=== PATIENT | male | born 1965 ===

== ENCOUNTER 2017-06-10 00:05 | Observation (INO) | payer MEDICARE, OTHER ==
[~2017-06-10] VITALS: Ht 182.9 cm; Wt 120.2 kg
[~2017-06-10 00:05] MED LIST: ZANTAC 7575 MG PO
--- OUTSIDE RECORDS SUMMARY | 2017-06-10 00:07 | XMS REPORT | Clinical Summary ---
Author Author [facility] Address Unknown Phone Unavailable Care Team Providers Care Director Investment [employer]ing Name Role Phone Asked, Given PCP Unavailable Allergies Active Allergy Reactions Severity Noted Date Comments No Known Drug Allergies 04/13/2015 Current Medications Prescription Sig. Disp. Refills Start End Date Status Date naproxen sodium (ALEVE) Take 1 tablet by mouth. 10/28/19 Active 220 MG tablet 15 multivitamin with Take 1 tablet by mouth. Active minerals tablet psyllium 1.7 g wafer Take 1 scoop BID Active mupirocin (BACTROBAN) 2 % APPLY TO AFFECTED AREA(S) 07/17/19 Active ointment TWO TIMES A DAY 16 psyllium (METAMUCIL) 3.4 Take 1 packet by mouth. Active gram packet esomeprazole (NexIUM) 40 Take 40 mg by mouth. Active MG capsule multivitamin (THERAGRAN) Take 1 tablet by mouth. Active tablet psyllium (METAMUCIL) 3.4 Take 1 packet by mouth. Active gram packet doxycycline (VIBRAMYCIN) Take 1 capsule (100 mg 60 capsule 2 09/11/19 Active 100 MG capsule total) by mouth 2 (two) 17 times a day for 30 days. amoxicillin-pot Take 875 mg by mouth. 10/08/19 Active clavulanate (AUGMENTIN) 17 875-125 mg per tablet ciprofloxacin (CIPRO) 500 Take 500 mg by mouth. 10/08/19 Active MG tablet 17 acetaminophen (TYLENOL) Take 325 mg by mouth. Active 325 MG tablet amoxicillin-pot Take 875 mg by mouth. 01/22/20 Active clavulanate (AUGMENTIN) 17 875-125 mg per tablet sodium chloride 0.9 % Inject 10 mL (1 syringe) 10/24/19 Active injection into each lumen of 17 central venous catheter daily as directed. ciprofloxacin (CIPRO) 500 Take 500 mg by mouth. 01/22/20 Active MG tablet 17 ranitidine (ZANTAC) 150 Take 150 mg by mouth. 03/07/20 Active MG capsule 17 esomeprazole (NexIUM Take by mouth. 07/31/19 Discontin Packet) 20 mg packet 17 ued HEParin, porcine, PF, INFUSE 2 ML (200 UNITS 11/29/19 07/31/19 Discontin (HEParin) 100 unit/mL TOATL) INTRAVENOUSLY 16 17 ued syringe DAILY FOR 60 DOSES. ranitidine (ZANTAC) 150 Take 150 mg by mouth. 07/31/19 Discontin MG capsule 17 ued vitamin E cream 1 application. 07/31/19 Discontin 17 ued minocycline Take 1 capsule (100 mg 28 capsule 0 07/31/19 08/20/19 Discontin (MINOCIN,DYNACIN) 100 MG total) by mouth 2 (two) 17 17 ued capsule times a day for 14 days. minocycline Take 1 capsule (100 mg 28 capsule 0 08/20/19 09/12/19 Discontin (MINOCIN,DYNACIN) 100 MG total) by mouth 2 (two) 17 17 ued capsule times a day for 14 days. minocycline Take 100 mg by mouth. 09/12/19 Discontin (MINOCIN,DYNACIN) 100 MG 17 ued capsule doxycycline (VIBRAMYCIN) Take 1 capsule (100 mg 60 capsule 2 09/11/19 09/11/19 Discontin 100 MG capsule total) by mouth 2 (two) 17 17 ued times a day for 30 days. 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 He does not appear to have a significant infection and therefore we will not plan to delay chemotherapy but would change this is a feel need for IV antibiotics. 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 We are coordinated with [facility] team regarding his potential eligibility for EBV CTLs. Last Assessment & Plan: Proceed with next dose of gemcitabine oxaliplatin. He is having a very good response and good toleration thus far Last Assessment & Plan: After short interval follow-up is had slight progression and therefore will need therapy. We have discussed his case with [facility] and they do have additional EBV positive lymphocytes to use therapeutically for him. They anticipate opening of a EBV-positive lymphocyte plus PD1 antibody clinical trial in the next 4-8 weeks. Therefore we will have him return to our center in 2 weeks to start bendamustine 90 milligrams per meter squared on days 1 and 2. 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 The patient is now status post 40 Gy of radiation to the right lower leg and is followed by Maira Sanchez and Charles at [facility] 1. February 2013, he developed a new lesion in the right calf. 03/02/2013, right lower extremity skin biopsy revealed NK-like T-cell lymphoma. 2. April 2013 PET-CT showed hypermetabolic right lower extremity subcutaneous nodules with a relatively high SUV value. Referred for radiation therapy to the leg. 3. April-May 2013 radiation to the right lower extremity with a total dose of 40 Gy in 20 fractions as well as R inguinal irradiation . His treatment course was complicated by wound formation and desquamation of the R lower extremity. 4. July 2013 PET showed improvement in R lower leg lesion but there were a couple of FDG avid tasneem sites within the groin and right external iliac vessels and right common iliac vessel that were concerning. 5. December 2013 PET scan showed decrease edema in the right lower extremity, little change to slight improvement in the foci of the skin. Pelvic and inguinal nodes were stable. 6. February 2014 PET showed right lower extremity edema and focal skin lesions in the right leg and right foot have slightly improved."There is stable cutaneous and subcutaneous thickening in the right foot with focal hypermetabolic activities SUV of 8.6 on image 924, mildly improved from previous measurement of 11 . There is also stable focal tracer uptake in the skin of the right leg on image 807 with SUV of 2.5, mildly improved from previous measurement of 3.6 However new hypermetabolic adenopathies are seen in the right groin with SUV of 6.6 on image 460 and SUV of 4.9 on image 489. New hypermetabolic subcentimeter lymph nodes are also seen in the right inguinal regions with SUV of 3.1 on image 49." Encounters Date Type Specialty Care Team Description 03/25/2017 [facility] Hematology and Oncology Mariluz Katz MD 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; Extranodal NK/T-cell lymphoma, nasal type 03/24/2017 [facility] Hematology and Oncology Martha Lang RN 03/20/2017 [facility] Hematology and Oncology Ann Bowers MD 02/26/2017 [facility] Hematology and Oncology Ann Bowers MD 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; Extranodal NK/T-cell lymphoma, nasal type 02/26/2017 [facility] Hematology and Oncology Ann Bowers MD Extranodal NK/T-cell lymphoma, nasal type; 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 02/19/2017 [facility] Hematology and Oncology Mariluz Katz MD 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; Extranodal NK/T-cell lymphoma, nasal type 02/18/2017 [facility] Hematology and Oncology Mariluz Katz MD 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; Extranodal NK/T-cell lymphoma, nasal type 02/12/2017 [facility] Hematology and Oncology Ann Bowers MD 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; Extranodal NK/T-cell lymphoma, nasal type 02/05/2017 [facility] Hematology [facility] Oncology Ann Bowers MD 02/04/2017 [facility] Hematology and Oncology Mariluz Katz MD 01/30/2017 [facility] Hematology and Oncology Ann Bowers MD 12/17/2016 [facility] Hematology and Oncology Mariluz Katz MD Research study patient Encounter Ann Bowers MD (Primary Dx); 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; Extranodal NK/T-cell lymphoma, nasal type 12/17/2016 [facility] Hematology and Oncology Martha Lang RN 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; Extranodal NK/T-cell lymphoma, nasal type 12/17/2016 [facility] Hematology and Oncology Ann Bowers MD 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; Extranodal NK/T-cell lymphoma, nasal type 12/12/2016 [facility] Hematology and Oncology Ann Bowers MD 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; Extranodal NK/T-cell lymphoma, nasal type 12/03/2016 [facility] Hematology and Oncology Ann Bowers MD 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; Extranodal NK/T-cell lymphoma, nasal type 10/21/2016 [facility] Hematology and Oncology Ann Bowers MD Canceled (Patient) Encounter 10/21/2016 [facility] Hematology and Oncology Martha Lang RN 10/14/2016 [facility] Hematology and Oncology Ann Bowers MD Research study patient Encounter (Primary Dx); 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; Extranodal NK/T-cell lymphoma, nasal type 10/14/2016 [facility] Hematology and Oncology Martha Lang RN 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; Extranodal NK/T-cell lymphoma, nasal type 10/14/2016 [facility] Hematology and Oncology Martha Lang RN 10/09/2016 [facility] Hematology and Oncology Martha Lang RN 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; Extranodal NK/T-cell lymphoma, nasal type 09/25/2016 [facility] Hematology and Oncology Martha Lang RN 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; Extranodal NK/T-cell lymphoma, nasal type 09/24/2016 [facility] Hematology and Oncology Ann Bowers MD Research study patient Encounter (Primary Dx); 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; Extranodal NK/T-cell lymphoma, nasal type 09/18/2016 [facility] Hematology and Oncology Martha Lang RN 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; Extranodal NK/T-cell lymphoma, nasal type 09/11/2016 [facility] Hematology and Oncology Ann Bowers MD Research study patient Encounter (Primary Dx); Extranodal NK/T-cell lymphoma, nasal type 09/11/2016 [facility] Hematology and Oncology Martha Lang RN 09/10/2016 [facility] Hematology and Oncology Ann Bowers MD Research study patient Encounter (Primary Dx); Extranodal NK/T-cell lymphoma, nasal type 09/10/2016 [facility] Hematology and Oncology Ann Bowers MD Extranodal NK/T-cell lymphoma, nasal type 09/09/2016 [facility] Pharmacy Flores Mccormack PharmD 09/04/2016 [facility] Only Hematology and Oncology Martha Lang RN Extranodal NK/T-cell lymphoma, nasal type 08/19/2016 [facility] Only Hematology and Oncology Crystal Francis [employer] 07/30/2016 [facility] Hematology and Oncology Ann Bowers MD Research study patient Encounter (Primary Dx); Extranodal NK/T-cell lymphoma, nasal type 07/16/2016 [facility] Hematology and Oncology Ann Bowers MD Extranodal NK/T-cell Encounter Geovanni Reyes MD lymphoma, nasal type 07/16/2016 [facility] Hematology [facility] Oncology Martha Lang RN 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 07/16/2016 [facility] Only Oncology Martha Lang RN 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 (Primary Dx) 07/03/2016 [facility] Hematology and Oncology Ann Bowers MD Extranodal NK/T-cell Encounter lymphoma, nasal type 07/02/2016 [facility] Hematology and Oncology Ann Bowers MD Research study patient Encounter (Primary Dx); Extranodal NK/T-cell lymphoma, nasal type 07/01/2016 [facility] Hematology and Oncology Martha Lang RN Extranodal NK/T-cell lymphoma, nasal type 06/25/2016 [facility] Hematology and Oncology Ann Bowers MD Extranodal NK/T-cell Encounter lymphoma, nasal type 06/19/2016 [facility] Hematology and Oncology Ann Bowers MD Extranodal NK/T-cell Encounter lymphoma, nasal type 06/18/2016 [facility] Hematology and Oncology Ann Bowers MD Research study patient Encounter (Primary Dx); Extranodal NK/T-cell lymphoma, nasal type 06/18/2016 [facility] Hematology and Oncology Justice López MD 06/18/2016 [facility] Hematology and Oncology Ann Bowers MD Extranodal NK/T-cell lymphoma, nasal type 06/11/2016 [facility] Hematology [facility] Oncology Ann Bowers MD 06/11/2016 [facility] Hematology [facility] Oncology Martha Lang RN Extranodal NK/T-cell lymphoma, nasal type after 06/09/2016 Immunizations Name Dates Previously Given Next Due Influenza Split 12/22/2012 MMR 1965 Family History Medical History Relation Name Comments Prostate cancer Father No Known Problems Mother Prostate cancer Paternal Uncle Relation Name Status Comments Father Mother Alive Paternal Uncle Social History Tobacco Use Types Packs/Day Years Used Date Never Assessed Alcohol Use Drinks/Week oz/Week Comments No Sex Assigned at Date Recorded Not on file Last Filed Vital Signs Vital Sign Reading Time Taken Blood Pressure 111/62 03/25/2017 11:59 AM [employer] Pulse 102 03/25/2017 11:59 AM [employer] SERV[employer] PROFESSIONAL Temperature 35.9 C (96.7 F) 03/25/2017 11:59 AM [employer] PROFESSIONAL Respiratory Rate 21 03/25/2017 11:59 AM FIN[employer]CIAL SERVICE PROFESSIONAL Oxygen Saturation 99% 03/25/2017 11:59 AM FIN[employer]CIAL SERVICE PROFESSIONAL Inhaled Oxygen - - Concentration Weight 121 kg (266 lb 15.6 oz) 02/26/2017 9:29 AM FIN[employer]CIAL SERVICE PROFESSIONAL Height 182.9 cm (6') 03/25/2017 11:59 AM FIN[employer]CIAL SERVICE PROFESSIONAL Body Mass Index 36.21 02/26/2017 9:29 AM FIN[employer]CIAL SERVICE PROFESSIONAL Plan of Treatment Health Maintenance Due Date Last Done Comments COLONOSCOPY 07/11/2015 INFLUENZA VACCINE 10/15/2016 12/22/2012 Results * Estimated GFR (03/25/2017 11:53 AM) Only the most recent of 10 results within the time period is included. Component Value Ref Range GFR Non Af Amer >90 mL/min/1.73 m2 GFR Af Amer >90 mL/min/1.73 m2 Comment: Chronic kidney disease: <60 mL/min/1.73m2 Kidney failure: <15 mL/min/1.73m2 The estimated GFR is calculated from the IDMS-traceable Modification of Diet in Renal Disease Equation. The accuracy of the calculation is poor when the creatinine is normal. Calculated values >90 mL/min/1.73m2 are not reported. This equation has not been validated in children (<18 years), women, the elderly (>70 years), or ethnic groups other than Caucasians and Americans. Specimen Performing Laboratory Plasma specimen [facility] DEPARTMENT OF PATHOLOGY AND GENOMIC MEDICINE [address] [place] [id number] * CBC with platelet and differential (03/25/2017 11:53 AM) Only the most recent of 11 results within the time period is included. Component Value Ref Range WBC 9.09 4.50 - 11.00 k/uL RBC 3.36 (L) 4.40 - 6.00 m/uL HGB 8.9 (L) 14.0 - 18.0 g/dL HCT 28.6 (L) 41.0 - 51.0 % MCV 85.1 82.0 - 100.0 fL MCH 26.5 (L) 27.0 - 34.0 pg MCHC 31.1 31.0 - 37.0 g/dL RDW - SD 55.8 (H) 37.0 - 55.0 fL MPV 9.5 8.8 - 13.2 fL Platelet count 306 150 - 400 k/uL Nucleated RBC 0.00 /100 WBC Neutrophils 79.0 (H) 39.0 - 69.0 % Lymphocytes 4.2 (L) 25.0 - 45.0 % Monocytes 15.1 (H) 0.0 - 10.0 % Eosinophils 0.1 0.0 - 5.0 % Basophils 0.4 0.0 - 1.0 % Immature granulocytes 1.2 (H)Comment: "Immature granulocytes" 0.0 - 1.0 % (promyelocytes, myelocytes, metamyelocytes) Specimen Performing Laboratory Blood [facility] DEPARTMENT OF PATHOLOGY AND GENOMIC MEDICINE [address] [place] [id number] * Bilirubin direct (03/25/2017 11:53 AM) Only the most recent of 3 results within the time period is included. Component Value Ref Range Bilirubin direct <0.2 0.0 - 0.3 mg/dL Specimen Performing Laboratory Plasma specimen [facility] DEPARTMENT OF PATHOLOGY AND GENOMIC MEDICINE [address] [place] [id number] * Comprehensive metabolic panel (03/25/2017 11:53 AM) Only the most recent of 10 results within the time period is included. Component Value Ref Range Sodium 137 135 - 148 mEq/L Potassium 4.0 3.5 - 5.0 mEq/L Chloride 97 (L) 98 - 112 mEq/L CO2 26 24 - 31 mEq/L Anion gap 14 7 - 15 mEq/L Comment: Starting from June , anion gap calculation no longer incorporates potassium. Please note the change. BUN 11 6 - 20 mg/dL Creatinine 0.5 (L) 0.7 - 1.2 mg/dL Glucose 95 65 - 99 mg/dL Calcium 8.5 8.3 - 10.2 mg/dL Protein 5.5 (L) 6.3 - 8.3 g/dL Comment: [place] 4.6-7.0 g/dL 1 week 4.4-7.6 g/dL 7 months-1year 5.1-7.3 g/dL 1-2 years 5.6-7.5 g/dL >3 years 6.0-8.0 g/dL 18-150 6.3-8.3 g/dL Albumin 1.9 (L) 3.5 - 5.0 g/dL A/G ratio 0.5 (L) 0.7 - 3.8 Alkaline phosphatase 86 40 - 129 U/L AST 30 10 - 50 U/L ALT 12 5 - 50 U/L Total bilirubin 0.3 0.0 - 1.2 mg/dL Specimen Performing Laboratory Plasma specimen [facility] DEPARTMENT OF PATHOLOGY AND GENOMIC MEDICINE [address] [place] [id number] * Manual differential (02/12/2017 9:18 AM) Component Value Ref Range Manual differential PERFORMED Neutrophils 75.0 (H) 39.0 - 69.0 % Lymphocytes 8.0 (L) 25.0 - 45.0 % Monocytes 17.0 (H) 0.0 - 10.0 % Eosinophils 0.0 0.0 - 5.0 % Basophils 0.0 0.0 - 1.0 % Metamyelocytes 0 % Promyelocytes 0 % Platelet slide review Messi adequate Anisocytosis Moderate Polychromasia Moderate Tear drop cells Occasional Spherocytes Occasional Ovalocytes Moderate Enlarged platelets Moderate (A) Giant platelets Occasional Specimen Performing Laboratory [facility] DEPARTMENT OF PATHOLOGY AND GENOMIC MEDICINE [address] [place] [id number] * Lipase level (10/14/2016 1:07 PM) Only the most recent of 7 results within the time period is included. Component Value Ref Range Lipase 20 13 - 60 U/L Specimen Performing Laboratory Plasma specimen [facility] DEPARTMENT OF PATHOLOGY AND GENOMIC MEDICINE [address] [place] [id number] * Aerobic culture (07/16/2016 10:59 AM) Only the most recent of 2 results within the time period is included. Component Value Ref Range Aerobic culture isolate Staphylococcus aureus Many (A) Comment: Specimen Information Specimen Source: Wound Specimen Site: Foot right lateral Aerobic culture isolate Enterococcus faecalis Many The performance characteristics of this assay on this isolate were validated by the Microbiology Laboratory at [facility]. This source has not been approved by the U.S. Food and Drug Administration. The results are not intended to be used as the sole means for clinical diagnosis or patient management. The Microbiology Laboratory is authorized under the clinical Laboratory Improvement Amendments of 1988 (CLIA-88) to perform high complexity testing. The performance characteristics of this assay on this isolate were validated by the Microbiology Laboratory at [facility]. This source has not been approved by the U.S. Food and Drug Administration. The results are not intended to be used as the sole means for clinical diagnosis or patient management. The Microbiology Laboratory is authorized under the clinical Laboratory Improvement Amendments of 1988 (CLIA-88) to perform high complexity testing. Enterococcus resistant to high levels of Gentamicin. Susceptibility results do not indicate synergy with Penicillins and Vancomycin. (A) Specimen Performing Laboratory Wound - Foot [facility] DEPARTMENT OF PATHOLOGY AND GENOMIC MEDICINE [address] [place] [id number] Organism Antibiotic Method Susceptibility Staphylococcus aureus Ampicillin JOELLE mcg/mL: Resistant Staphylococcus aureus Clindamycin JOELLE <=0.5 mcg/mL: Susceptible Staphylococcus aureus Erythromycin JOELLE >4 mcg/mL: Resistant Staphylococcus aureus Levofloxacin JOELLE >4 mcg/mL: Resistant Staphylococcus aureus Linezolid JOELLE 2 mcg/mL: Susceptible Staphylococcus aureus Minocycline JOELLE <=1 mcg/mL: Susceptible Staphylococcus aureus Oxacillin JOELLE 0.5 mcg/mL: Susceptible Staphylococcus aureus Penicillin G JOELLE >1 mcg/mL: Resistant Staphylococcus aureus Rifampin JOELLE <=0.5 mcg/mL: Susceptible Staphylococcus aureus Trimethoprim/Sulfamethoxa JOELLE <=0.5/9.5 mcg/mL: zole Susceptible Staphylococcus aureus Tetracycline JOELLE <=0.5 mcg/mL: Susceptible Staphylococcus aureus Vancomycin JOELLE 1 mcg/mL: Susceptible Enterococcus faecalis Ampicillin JOELLE 1 mcg/mL: Susceptible Enterococcus faecalis Erythromycin JOELLE >4 mcg/mL: Resistant Enterococcus faecalis Gentamicin-Syn JOELLE >500 mcg/mL: Resistant Enterococcus faecalis Linezolid JOELLE <=1 mcg/mL: Susceptible Enterococcus faecalis Minocycline JOELLE >8 mcg/mL: Resistant Enterococcus faecalis Vancomycin JOELLE 1 mcg/mL: Susceptible * Gram stain (07/16/2016 10:59 AM) Only the most recent of 2 results within the time period is included. Component Value Ref Range Gram stain isolate Few WBC's Occasional Gram positive cocci in clusters Comment: Specimen Information Specimen Source: Wound Specimen Site: Foot right lateral Specimen Performing Laboratory Wound [facility] DEPARTMENT OF PATHOLOGY AND GENOMIC MEDICINE [address] [place] [id number] * Anaerobic culture (07/16/2016 10:59 AM) Only the most recent of 2 results within the time period is included. Component Value Ref Range Anaerobic culture isolate No anaerobic organisms isolated. Comment: Specimen Information Specimen Source: Wound Specimen Site: Foot right lateral Specimen Performing Laboratory Wound [facility] DEPARTMENT OF PATHOLOGY AND GENOMIC MEDICINE [address] [place] [address] after 06/09/2016 Insurance Payer Benefit Subscriber ID Type Phone Address Plan / Group MEDICARE MEDICARE xxxxxxxxxxx Medicare [place], [place] PART A AND B MEDICAID MEDICAID xxxxxxxxx Medicaid
[2017-06-10] MEDS ORDERED: ASPIRIN 81 MG CHEW TAB PO ONE (00:15)
[2017-06-10] MEDS ORDERED: SODIUM CHLORIDE 0.9% 1000ML 1,000 ML IV ONE (00:45)
--- NOTE | 2017-06-10 01:41 | Diagnostic Imaging Report ---
ADDENDUM #1 Multiple wires/leads overlie the patient. Left sided PICC terminates at the cavoatrial junction. Signed by: Dr Monica Kaplan MD on 06/10/2017 2:08 AM ORIGINAL REPORT CHEST SINGLE (PORTABLE), 06/10/2017 12:14 AM Technique: CHEST SINGLE (PORTABLE) Comparison: None available. Clinical history: \S\AMS,LOW 02 SATS \S\[id number] \S\0035 \S\Y Findings: See Impression Impression: 1. Lines/Tubes: None 2. Normal cardiomediastinal silhouette for portable technique. 3. Moderate to large right pleural effusion with associated atelectasis or consolidation. 4. Patchy left pulmonary opacities which could be due to infection or aspiration. Signed by: Dr Monica Kaplan MD on 06/10/2017 1:37 AM
--- OUTSIDE RECORDS SUMMARY | 2017-06-10 01:52 | XMS REPORT | Clinical Summary ---
Author Author [facility] Address Unknown Phone Unavailable Care Team Providers Care Melter Loader Name Role Phone Asked, Given PCP Unavailable [...] cycle of chemotherapy. We are coordinated with [facility] team regarding his potential eligibility for EBV CTLs. Last Assessment & Plan: Proceed with next dose of gemcitabine oxaliplatin. He is having a very good response and good toleration thus far Last Assessment & Plan: After short interval follow-up is had slight progression and therefore will need therapy. We have discussed his case with [facility] and they do have additional EBV positive lymphocytes to use therapeutically for him. They anticipate opening of a EBV-positive lymphocyte plus PD1 antibody clinical trial in the next 4-8 weeks. Therefore we will have him return to our center in 2 weeks to start bendamustine 90 milligrams per meter squared on days 1 and 2. If the cell therapy at [facility] is not available in 4 weeks he [...] followed by Maira Sanchez and Charles at [facility] 1. 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; Extranodal NK/T-cell lymphoma, nasal type 02/26/2017 [facility] Hematology and Oncology Ann Bowers MD Extranodal NK/T-cell lymphoma, nasal type; 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 02/19/2017 [facility] Hematology and Oncology Mariluz Katz MD 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; Extranodal NK/T-cell lymphoma, nasal type 02/18/2017 [facility] Hematology and Oncology Mariluz Katz MD 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; Extranodal NK/T-cell lymphoma, nasal type 02/12/2017 [facility] Hematology and Oncology Ann Bowers MD 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; Extranodal NK/T-cell lymphoma, nasal type 02/05/2017 [facility] Hematology [facility] Oncology Ann Bowers MD 02/04/2017 [facility] Hematology and Oncology Mariluz Katz MD 01/30/2017 [facility] Hematology [facility] Oncology Ann Bowers MD 12/17/2016 [facility] Hematology and Oncology Mariluz Katz [...] neoplasm; Extranodal NK/T-cell lymphoma, nasal type 10/21/2016 [facility] Hematology and Oncology Ann Bowers MD Canceled (Patient) Encounter 10/21/2016 [facility] Hematology and Oncology Martha Lang RN 10/14/2016 [facility] Hematology and Oncology Ann Bowers [...] neoplasm; Extranodal NK/T-cell lymphoma, nasal type 09/24/2016 [facility] Hematology and Oncology Ann Bowers MD Research study patient Encounter (Primary Dx); 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; Extranodal NK/T-cell lymphoma, nasal type 09/18/2016 [facility] Hematology and Oncology Martha Lang RN 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; Extranodal NK/T-cell lymphoma, nasal type 09/11/2016 [facility] Hematology and Oncology Ann Bowers MD Research study patient Encounter (Primary Dx); Extranodal NK/T-cell lymphoma, nasal type 09/11/2016 [facility] Hematology and Oncology Martha Lang RN 09/10/2016 [facility] Hematology and Oncology Ann Bowers MD Research study patient Encounter (Primary Dx); Extranodal NK/T-cell lymphoma, nasal type 09/10/2016 [facility] Hematology and Oncology Ann Bowers MD Extranodal NK/T-cell lymphoma, nasal type 09/09/2016 [facility] Pharmacy Flores Mccormack PharmD 09/04/2016 [facility] Hematology and Oncology Martha Lang RN Extranodal NK/T-cell lymphoma, nasal type 08/19/2016 [facility] Hematology and Oncology Crystal Francis ARMAMENT MECHANIC 07/30/2016 [facility] Hematology and Oncology Ann Bowers MD Research study patient Encounter (Primary Dx); Extranodal NK/T-cell lymphoma, nasal type 07/16/2016 [facility] Hematology and Oncology Ann Bowers MD Extranodal NK/T-cell Encounter Geovanni Reyes MD lymphoma, nasal type 07/16/2016 [facility] Hematology and Oncology Martha Lang RN 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 07/16/2016 [facility] Oncology Martha Lang RN 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 (Primary Dx) 07/03/2016 [facility] Hematology and Oncology Ann Bowers MD Extranodal NK/T-cell Encounter lymphoma, nasal type 07/02/2016 [facility] Hematology and Oncology Ann Bowers MD Research study patient Encounter (Primary Dx); Extranodal NK/T-cell lymphoma, nasal type 07/01/2016 [facility] Hematology and Oncology Martha Lang RN Extranodal NK/T-cell lymphoma, nasal type 06/25/2016 [facility] Hematology and Oncology Ann Bowers MD Extranodal NK/T-cell Encounter lymphoma, nasal type 06/19/2016 [facility] Hematology and Oncology Ann Bowers MD Extranodal NK/T-cell Encounter lymphoma, nasal type 06/18/2016 [facility] Hematology and Oncology Ann Bowers [...] Taken Blood Pressure 111/62 03/25/2017 11:59 AM LANDSCAPE PAINTER Pulse 102 03/25/2017 11:59 AM LANDSCAPE PAINTER Temperature 35.9 C (96.7 F) 03/25/2017 11:59 AM LANDSCAPE PAINTER Respiratory Rate 21 03/25/2017 11:59 AM LANDSCAPE PAINTER Oxygen Saturation 99% 03/25/2017 11:59 AM LANDSCAPE PAINTER Inhaled Oxygen - - Concentration Weight 121 kg (266 lb 15.6 oz) 02/26/2017 9:29 AM LANDSCAPE PAINTER Height 182.9 cm (6') 03/25/2017 11:59 AM LANDSCAPE PAINTER Body Mass Index 36.21 02/26/2017 9:29 AM LANDSCAPE PAINTER Plan of Treatment Health Maintenance Due Date [...] and Americans. Specimen Performing Laboratory Plasma specimen [facility] DEPARTMENT OF PATHOLOGY AND GENOMIC MEDICINE [address] [place] [address] 90369 * CBC with platelet and differential (03/25/2017 [...] (promyelocytes, myelocytes, metamyelocytes) Specimen Performing Laboratory Blood [facility] DEPARTMENT OF PATHOLOGY AND GENOMIC MEDICINE [address] [place] [address] 50204 * Bilirubin direct (03/25/2017 11:53 AM) Only the most recent of 3 results within the time period is included. Component Value Ref Range Bilirubin direct <0.2 0.0 - 0.3 mg/dL Specimen Performing Laboratory Plasma specimen [facility] DEPARTMENT OF PATHOLOGY AND GENOMIC MEDICINE [address] [place] [address] 61061 * Comprehensive metabolic panel (03/25/2017 11:53 AM) [...] 5.5 (L) 6.3 - 8.3 g/dL Comment: [place] 4.6-7.0 g/dL 1 week 4.4-7.6 g/dL 7 [...] 1.2 mg/dL Specimen Performing Laboratory Plasma specimen [facility] DEPARTMENT OF PATHOLOGY AND GENOMIC MEDICINE [address] [place] [address] 15370 * Manual differential (02/12/2017 9:18 AM) Component [...] (A) Giant platelets Occasional Specimen Performing Laboratory [facility] DEPARTMENT OF PATHOLOGY AND GENOMIC MEDICINE [address] [place] [address] 72669 * Lipase level (10/14/2016 1:07 PM) Only the most recent of 7 results within the time period is included. Component Value Ref Range Lipase 20 13 - 60 U/L Specimen Performing Laboratory Plasma specimen [facility] DEPARTMENT OF PATHOLOGY AND GENOMIC MEDICINE [address] [place] [address] 77250 * Aerobic culture (07/16/2016 10:59 AM) Only [...] validated by the Microbiology Laboratory at [facility]. This source has not been approved by [...] validated by the Microbiology Laboratory at [facility]. This source has not been approved by [...] (A) Specimen Performing Laboratory Wound - Foot [facility] DEPARTMENT OF PATHOLOGY AND GENOMIC MEDICINE [address] [place] [address]139 Organism Antibiotic Method Susceptibility Staphylococcus aureus Ampicillin [...] Foot right lateral Specimen Performing Laboratory Wound [facility] DEPARTMENT OF PATHOLOGY AND GENOMIC MEDICINE [address] [place] [address] 29881 * Anaerobic culture (07/16/2016 10:59 AM) Only the most recent of 2 results within the time period is included. Component Value Ref Range Anaerobic culture isolate No anaerobic organisms isolated. Comment: Specimen Information Specimen Source: Wound Specimen Site: Foot right lateral Specimen Performing Laboratory Wound [facility] DEPARTMENT OF PATHOLOGY AND GENOMIC MEDICINE [address] [place] [address] after 06/09/2016 Insurance Payer Benefit Subscriber ID Type Phone Address Plan / Group MEDICARE MEDICARE xxxxxxxxxxx Medicare [place], [place] PART A AND B MEDICAID MEDICAID xxxxxxxxx Medicaid
--- OUTSIDE RECORDS SUMMARY | 2017-06-10 01:53 | XMS REPORT ---
Author Author [facility] Address Unknown Phone Unavailable Care Team Providers Care Distribution District Supervisor Name Role Phone EDY HUANG Unavailable Unavailable Problems This patient has no known problems. Allergies, Adverse Reactions, Alerts This patient has no known allergies or adverse reactions. Medications This patient has no known medications. Results Test Description Test Time Test Comments Text Results Atomic Results Result Comments CHEST SINGLE (PORTABLE) [place] [address] Patient Name: MILO JENKINS MR #: [id number] : 1965 Age/Sex: 51/M Req #: [id number] Adm Physician: Ordered by: EDY HUANG MD Report #: [id number] Location: ER Room/Bed: ___ Procedure: [id number] DX/CHEST SINGLE (PORTABLE) Exam Date: 06/10/17 Exam Time: 34 REPORT STATUS: Signed CHEST SINGLE (PORTABLE), 06/10/2017 12:14 AM Technique: CHEST SINGLE (PORTABLE) Comparison: None available. Clinical history: S AMS,LOW 02 SATS S [id number] S 0035 S Y Findings: See Impression Impression: 1. Lines/Tubes: None 2. Normal cardiomediastinal silhouette for portable technique. 3. Moderate to large right pleural effusion with associated atelectasis or consolidation. 4. Patchy left pulmonary opacities which could be due to infection or aspiration. Signed by: Dr Francesco Kaplan MD on 06/10/2017 1: 37 AM Dictated By: FRANCESCO KAPLAN MD 6 Transcribed By: JOSE on 06/10/17136 COPY TO: EDY HUANG MD
[2017-06-10] MEDS: ONDANSETRON HCL INJ 2 MG/ML VIAL IV PRN ×4 (01:55→11:30)
[2017-06-10] MEDS: HYDROMORPHONE 1MG/1ML INJ IV PRN ×3 (05:42→11:30)
[2017-06-10 18:44] VITALS: BP 0/0
--- OUTSIDE RECORDS SUMMARY | 2017-06-20 12:37 | XMS REPORT | Clinical Summary ---
Author Author [facility] Address Unknown Phone Unavailable Care Team Providers Care Health Assistant Name Role Phone Asked, Given PCP Unavailable [...] cycle of chemotherapy. We are coordinated with [facility] team regarding his potential eligibility for EBV CTLs. Last Assessment & Plan: Proceed with next dose of gemcitabine oxaliplatin. He is having a very good response and good toleration thus far Last Assessment & Plan: After short interval follow-up is had slight progression and therefore will need therapy. We have discussed his case with [facility] and they do have additional EBV positive lymphocytes to use therapeutically for him. They anticipate opening of a EBV-positive lymphocyte plus PD1 antibody clinical trial in the next 4-8 weeks. Therefore we will have him return to our center in 2 weeks to start bendamustine 90 milligrams per meter squared on days 1 and 2. If the cell therapy at [facility] is not available in 4 weeks he [...] followed by Maira Sanchez and Charles at [facility] 1. 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; Extranodal NK/T-cell lymphoma, nasal type 02/26/2017 [facility] Hematology and Oncology Ann Bowers MD Extranodal NK/T-cell lymphoma, nasal type; 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 02/19/2017 [facility] Hematology and Oncology Mariluz Katz MD 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; Extranodal NK/T-cell lymphoma, nasal type 02/18/2017 [facility] Hematology and Oncology Mariluz Katz MD 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; Extranodal NK/T-cell lymphoma, nasal type 02/12/2017 [facility] Hematology and Oncology Ann Bowers MD 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; Extranodal NK/T-cell lymphoma, nasal type 02/05/2017 [facility] Hematology [facility] Oncology Ann Bowers MD 02/04/2017 [facility] Hematology and Oncology Mariluz Katz MD 01/30/2017 [facility] Hematology and Oncology Ann Bowers MD 12/17/2016 [facility] Hematology and Oncology Mariluz Katz MD Research [...] 12/03/2016 [facility] Hematology and Oncology Ann oBwers MD 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; Extranodal NK/T-cell lymphoma, nasal type 10/21/2016 [facility] Hematology and Oncology Ann Bowers MD Canceled (Patient) Encounter 10/21/2016 [facility] Hematology and Oncology Martha Lang RN 10/14/2016 [facility] Hematology and Oncology Ann Bowers MD Research [...] neoplasm; Extranodal NK/T-cell lymphoma, nasal type 09/24/2016 [facility] Hematology and Oncology Ann Bowers MD Research study patient Encounter (Primary Dx); 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; Extranodal NK/T-cell lymphoma, nasal type 09/18/2016 [facility] Hematology and Oncology Martha Lang RN 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; Extranodal NK/T-cell lymphoma, nasal type 09/11/2016 [facility] Hematology and Oncology Ann Bowers MD Research study patient Encounter (Primary Dx); Extranodal NK/T-cell lymphoma, nasal type 09/11/2016 [facility] Hematology [facility] Oncology Martha Lang RN 09/10/2016 [facility] Hematology and Oncology Ann Bowers MD Research study patient Encounter (Primary Dx); Extranodal NK/T-cell lymphoma, nasal type 09/10/2016 [facility] Hematology [facility] Oncology Ann Bowers MD Extranodal NK/T-cell lymphoma, nasal type 09/09/2016 [facility] Pharm[facility] Flores Mccormack PharmD 09/04/2016 [facility] Hematology and Oncology Martha Lang RN Extranodal NK/T-cell lymphoma, nasal type 08/19/2016 [facility] Hematology and Oncology Crystal Francis STAMPING OPERATOR 07/30/2016 [facility] Hematology and Oncology Ann Bowers MD Research study patient Encounter (Primary Dx); Extranodal NK/T-cell lymphoma, nasal type 07/16/2016 [facility] Hematology and Oncology Ann Bowers MD Extranodal NK/T-cell Encounter Geovanni Reyes MD lymphoma, nasal type 07/16/2016 [facility] Hematology [facility] Oncology Martha Lang RN 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 07/16/2016 [facility] Oncology Martha Lang RN 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 (Primary Dx) 07/03/2016 [facility] Hematology and Oncology Ann Bowers MD Extranodal NK/T-cell Encounter lymphoma, nasal type 07/02/2016 [facility] Hematology and Oncology Ann Bowers MD Research study patient Encounter (Primary Dx); Extranodal NK/T-cell lymphoma, nasal type 07/01/2016 [facility] Hematology and Oncology Martha Lang RN Extranodal NK/T-cell lymphoma, nasal type 06/25/2016 [facility] Hematology and Oncology Ann Bowers MD Extranodal NK/T-cell Encounter lymphoma, nasal type 06/19/2016 [facility] Hematology and Oncology Ann Bowers MD Extranodal NK/T-cell Encounter lymphoma, nasal type after 06/19/2016 Immunizations Name Dates Previously Given Next Due [...] Taken Blood Pressure 111/62 03/25/2017 11:59 AM DANCE MASTER Pulse 102 03/25/2017 11:59 AM DANCE MASTER Temperature 35.9 C (96.7 F) 03/25/2017 11:59 AM DANCE MASTER Respiratory Rate 21 03/25/2017 11:59 AM DANCE MASTER Oxygen Saturation 99% 03/25/2017 11:59 AM DANCE MASTER Inhaled Oxygen - - Concentration Weight 121 kg (266 lb 15.6 oz) 02/26/2017 9:29 AM DANCE MASTER Height 182.9 cm (6') 03/25/2017 11:59 AM DANCE MASTER Body Mass Index 36.21 02/26/2017 9:29 AM DANCE MASTER Plan of Treatment Health Maintenance Due Date Last Done Comments COLONOSCOPY 07/11/2015 INFLUENZA VACCINE 10/15/2017 12/22/2012 Results * Estimated GFR (03/25/2017 11:53 AM) Only the most recent of 9 results within the time period is included. [...] and Americans. Specimen Performing Laboratory Plasma specimen [facility] DEPARTMENT OF PATHOLOGY AND [facility] MEDICINE [address] [place] [address]246 * CBC with platelet and differential (03/25/2017 [...] (promyelocytes, myelocytes, metamyelocytes) Specimen Performing Laboratory Blood [facility] DEPARTMENT OF PATHOLOGY AND [address] [address] * Bilirubin direct (03/25/2017 11:53 AM) Only the most recent of 3 results within the time period is included. Component Value Ref Range Bilirubin direct <0.2 0.0 - 0.3 mg/dL Specimen Performing Laboratory Plasma specimen [facility] DEPARTMENT OF PATHOLOGY AND [facility] MEDICINE [address] [place] [address] 89475 * Comprehensive metabolic panel (03/25/2017 11:53 AM) Only the most recent of 9 results within the time period is included. [...] 5.5 (L) 6.3 - 8.3 g/dL Comment: 4.6-7.0 g/dL 1 week 4.4-7.6 g/dL 7 [...] 1.2 mg/dL Specimen Performing Laboratory Plasma specimen [facility] DEPARTMENT OF PATHOLOGY AND GENOMIC MEDICINE [address] [place] [address]297 * Manual differential (02/12/2017 9:18 AM) Component [...] (A) Giant platelets Occasional Specimen Performing Laboratory [facility] DEPARTMENT OF PATHOLOGY AND GENOMIC MEDICINE [address] [place] [address] 80959 * Lipase level (10/14/2016 1:07 PM) Only the most recent of 6 results within the time period is included. Component Value Ref Range Lipase 20 13 - 60 U/L Specimen Performing Laboratory Plasma specimen [facility] DEPARTMENT OF PATHOLOGY AND GENOMIC MEDICINE [address] [place] [address] 53058 * Aerobic culture (07/16/2016 10:59 AM) Only [...] validated by the Microbiology Laboratory at [facility]. This source has not been approved by [...] validated by the Microbiology Laboratory at [facility]. This source has not been approved by [...] (A) Specimen Performing Laboratory Wound - Foot [facility] DEPARTMENT OF PATHOLOGY AND GENOMIC MEDICINE [address] [place] [address] Organism Antibiotic Method Susceptibility Staphylococcus aureus Ampicillin [...] Foot right lateral Specimen Performing Laboratory Wound [facility] DEPARTMENT OF PATHOLOGY AND GENOMIC MEDICINE [address] [place] [address]59 * Anaerobic culture (07/16/2016 10:59 AM) Only the most recent of 2 results within the time period is included. Component Value Ref Range Anaerobic culture isolate No anaerobic organisms isolated. Comment: Specimen Information Specimen Source: Wound Specimen Site: Foot right lateral Specimen Performing Laboratory Wound [facility] DEPARTMENT OF PATHOLOGY AND GENOMIC MEDICINE [address] [place] [address] after 06/19/2016 Insurance Payer Benefit Subscriber ID Type Phone Address Plan / Group MEDICARE MEDICARE xxxxxxxxxxx Medicare [place], [place] PART A AND B MEDICAID MEDICAID xxxxxxxxx Medicaid
== END 2017-06-10 18:00 | disposition expired ==
LOC: ER 00:05 → ERHOLD 01:31 → UNDOADMOB 01:49 → ER 18:00
DX: C84.90 Mature T/NK-cell lymphomas, unspecified, unspecified site (principal); D72.829 Elevated white blood cell count, unspecified; D64.9 Anemia, unspecified; Z66 Do not resuscitate; I96 Gangrene, not elsewhere classified; R53.81 Other malaise; E66.9 Obesity, unspecified; Z68.35 Body mass index [BMI] 35.0-35.9, adult; L03.115 Cellulitis of right lower limb
CPT/HCPCS: 36415; 71045; 82948; 93005; 99285; G0378; J1170; J2405